=== PATIENT | male | born 1985 | race Caucasian/White ===

== ENCOUNTER → 2017-03-12 | Outpatient (CLI) | payer BC ==
[~2017-03-12] MED LIST: BACL1TAB PO; CLB100 PO; CLON0.5T3 PO; DICL1GEL28; DIPH25TA24 PO; DUTA0.5C PO; ESCI10TA17 PO; FLAX100024 PO; GADAVIST IV PRN; GLUCTAB7 PO; MELA1CAP PO; META1TAB22 PO; MULTTAB58 PO; PROB1TAB16 PO; TRAM-10 PO
--- NOTE | 2017-03-12 11:41 | DIAGNOSTIC IMAGING REPORT ---
MRI CERVICAL SPINE COMBO CLINICAL HISTORY: Herniated disc, cervical radiculopathy. TECHNIQUE: Sagittal and axial T1, T2 and STIR images were obtained. Imaging was performed before and after the administration of 6.5 cc of intravenous Gadavist. COMPARISON STUDY: No previous studies for comparison. There are no suspicious areas of marrow replacement. No intrinsic cervical cord lesions are visualized. C2-3: There is no evidence of disc bulge or focal herniation. There is no spinal or foraminal stenosis. C3-4: There is no evidence of disc bulge or focal herniation. There is no spinal or foraminal stenosis. C4-5: There are no disc bulges or focal herniations. There is no spinal or foraminal stenosis. C5-6 :There are no disc bulges or focal herniations. There is no spinal or foraminal stenosis. C6-7: There is a mild circumferential disc bulge. There is no significant spinal stenosis. There is minimal bilateral foraminal narrowing.. C7-T1: There is no evidence of disc bulge or focal herniation. There is no evidence of spinal or foraminal stenosis. Postcontrast images reveal no pathologically enhancing lesions IMPRESSION: 1. No intrinsic cord lesions identified 2. Mild C6-7 disc bulge. 3. No evidence of significant spinal stenosis. Minimal bilateral C6-7 foraminal narrowing Electronically signed by: West Youssef M.D. 03/12/2017 11:38 AM Dictated Date/Time: 03/12/2017 11:32 AM
== END | disposition home or self-care (01) ==
LOC: C.MRI 10:06
PROVIDERS: ATTEND Nurse Practitioner Family
DX: M50.10 Cervical disc disorder with radiculopathy, unspecified cervical region (principal); M54.2 Cervicalgia

== ENCOUNTER → 2018-01-07 | Outpatient (CLI) | payer OTHER ==
[~2018-01-07] MED LIST changes: -GADAVIST IV PRN
[2018-01-07 12:17] LABS: HEMATOCRIT 45.1 % (42-52); HEMOGLOBIN 15.9 g/dL (14.0-18.0); MEAN CELL VOLUME 87.2 fL (80-100); MEAN CORPUSCULAR HEMOGLOBIN 30.8 pg (25-34); MEAN CORPUSCULAR HGB CONC 35.3 g/dl (32-36); MEAN PLATELET VOLUME 10.3 fL (7.4-10.4); PLATELET COUNT 237 K/uL (130-400); RED CELL DISTRIBUTION WIDTH CV 12.9 % (11.5-14.5); RED CELL DISTRIBUTION WIDTH SD 41.3 fL (36.4-46.3); WHITE BLOOD COUNT 3.23 K/uL (4.8-10.8)
[2018-01-07 12:35] LABS: BLOOD UREA NITROGEN 24 mg/dl (7-18); CALCIUM 9.5 mg/dl (8.5-10.1); CARBON DIOXIDE 25 mmol/L (21-32); CREATININE 1.22 mg/dl (0.60-1.40); GLUCOSE 79 mg/dl (70-99); POTASSIUM 3.8 mmol/L (3.5-5.1); SODIUM 138 mmol/L (136-145)
[2018-01-07 12:46] LABS: ALKALINE PHOSPHATASE 62 U/L (45-117); ALT/SGPT 27 U/L (12-78); AST/SGOT 22 U/L (15-37); TOTAL PROTEIN 7.3 gm/dl (6.4-8.2)
[2018-01-10 14:15] LABS: ANA SCREEN TC 249X NEGATIVE (NEGATIVE)
== END | disposition home or self-care (01) ==
LOC: C.LAB 10:15
PROVIDERS: ATTEND Chiropractor
DX: R53.83 Other fatigue (principal)

== ENCOUNTER 2025-01-22 15:08 | Inpatient (IN) ==
--- NOTE | 2025-01-22 15:26 | Emergency Department Note ---
Impression & Plan Chest pain, Abnormal EKG ED Provider Note NAME: CLAU SWEENEY AGE: 39 SEX: M : 1985 ARRIVES VIA: Ambulance INFORMANT: Patient, ED PROVIDER(S): Reg Baca DO CHIEF COMPLAINT: Chest pain HPI: The patient is a 39-year-old male who presented to the emergency department for an evaluation of chest pain. The patient started having chest pain last evening. It occurred after sexual intercourse. He notices when he lays down and relaxes the pain goes away but when he stands up he does note pain returning. He denies having any shortness of breath or leg swelling. The patient does not have a history of coronary artery disease. He denies having any fever or cough. The patient went to see his family doctor today and was sent to the emergency department because of an abnormal EKG. The patient states at this time he has no discomfort. ROS: See above HPI for pertinent positives & negatives. A total of 10 systems reviewed and were otherwise negative. PAST MEDICAL HISTORY: See Below PAST SURGICAL HISTORY: See Below FAMILY HISTORY: See Below SOCIAL HISTORY: See Below HOME MEDICATIONS: See Below ALLERGIES: See Below VITALS: See Below PHYSICAL EXAMINATION: GENERAL: Patient is awake alert in no acute distress patient is resting comfortably and showing no signs of anxiety EYES: The conjunctivae are clear. The pupils are round and reactive. EARS, NOSE, MOUTH AND THROAT: The nose is without any evidence of any deformity. NECK: The neck is nontender and supple. RESPIRATORY: Normal respiratory effort is noted there is no evidence of wheezing rhonchi or rales CARDIOVASCULAR: Regular rate and rhythm noted there no murmurs rubs or gallops normal S1 normal S2. GASTROINTESTINAL: The abdomen is soft. Abdomen is nontender. MUSCULOSKELETAL/EXTREMITIES: There is no evidence of gross deformity full range of motion is noted in the hips and shoulders. SKIN: There is no obvious evidence of any rash. There are no petechiae, pallor or cyanosis noted. NEUROLOGIC: Patient is awake alert and oriented x3 MEDICAL DECISION MAKING: The patient is a 39-year-old male who presented to the emergency department for an evaluation of chest pain. The patient describes anterior chest pain which began the night before. The patient was initially seen at his family doctor's office. He was found to have an EKG that was very abnormal and he was sent to the emergency department by ambulance for further evaluation. The patient's pain did not seem to be very extensive. His initial EKG by prehospital as well as his initial EKG in the emergency department did not show the same ST segment elevations. Initial troponin was normal. I discussed the patient's condition with the [facility] citrix architect. He does recommend an echocardiogram in the emergency department. This did not show any obvious wall motion abnormalities. I discussed the patient's condition with the on-call [facility] hospitalist. They have agreed to evaluate the patient in the emergency department for further management and disposition. Triage Nursing notes reviewed. Prior medical records reviewed Vital Signs: reviewed and remarkable for no significant abnormalities Differential diagnosis: Cardiac ischemia, aortic dissection, pulmonary embolism, pneumothorax, pneumonia, pericarditis, myocarditis, esophageal rupture, GERD, cholecystitis, pancreatitis, musculoskeletal, as well as other pathologies. ER treatment provided: See below Diagnostics interpreted by me: ECG: EKG was obtained in the emergency department. My interpretation is normal sinus rhythm at 71 bpm. Nonspecific T wave abnormalities were noted in the inferior leads. There is no acute ST segment elevations noted. This was carried to a tracing from September 29, 2023. No changes were noted. A prehospital EKG was reviewed. My interpretation is normal sinus rhythm at 75 bpm. There is no ectopy. There was no acute ST segment elevations noted. This compares similar to the initial EKG obtained in the emergency department. An EKG that was done in the clinic was reviewed. My interpretation is sinus bradycardia at [address] segment elevations were noted in the apical and lower lateral leads. There is also ST depression noted inferiorly. These ST segment abnormalities have since resolved comparing to the EKG obtained in the emergency department. Cardiac Monitoring: An order was placed for continuous cardiac monitoring. The monitor shows a rate of 72 bpm with sinus rhythm. Laboratory studies: As stated above and show below. Imaging studies: See below. Radiographic imaging was reviewed by myself Consultation(s): I discussed this case with Claudia who is covering for the [facility] hospitalist group. I discussed this case with Dr. Medeiros who is on-call for the [facility] cardiology group. Past Med/Surg History Problem List (Updated 01/22/25 @ 21:08 by Reg Baca DO) Abnormal EKG (Acute) Chest pain (Acute) CKD (chronic kidney disease) stage 3, GFR 30-59 ml/min Nonspecific ST-T wave electrocardiographic changes Chest pain Benign hypertension BHASKAR positive 1: 40. 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 Sleep walking disorder (Chronic) Underwent sleep study 05/19/12 - No significant slep apnea/hypooponea, nocturnal hypoxemia or abdnomal limb movements during sleep to explain symptoms. Only slept 2.1 hours. Recommended continued sleep aids/sleep hygeine optimization. Multiple food allergies (Acute) Allergy Testing 03/2018 - +1 pea, crab mix, servin's yeast, soybean whole grain. Trace for peanut mix, black walnut, lobster, salmon, cow's milk, rice whole grain. Allergic rhinitis Chronic fatigue Mast cell disorder Depression (Chronic) Vitamin D deficiency (Chronic) Medical History Constipation History of COVID-19 10/2020- flu like symptoms and loss of taste and smell; resolved MVP (mitral valve prolapse) slight, does not follow w/ cardio Environmental and seasonal allergies Hydronephrosis hx Surgical History Hx of ureter repair x 2- 3 mos and 12 yrs old Hx of cervical discectomy S/P vasectomy S/P wisdom tooth extraction S/P knee surgery X 2 S/P tonsillectomy S/P bladder repair Family History Grandmother (Maternal) Myocardial infarction Father Prostate cancer Hypertension Mother Lupus Other No family history of adverse response to anesthesia No family history of bleeding disorder Denies family history of Ovarian cancer Breast cancer Colorectal cancer Social History Smoking Status: Never smoker Second Hand Exposure: No; Do You Dip or Chew Tobacco: No; Hx Alcohol Use: Yes Alcohol Intake Frequency: 2-4 x/Month Hx Substance Use: No Preferred Language: Austrian Communication Ability: Effective Visual Impairment: No Limitations Hearing Ability: Normal Payroll Coordinator Required: No Beliefs That Will Affect Care: None marital status: Current Living Situation: Family current occupational status: 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 caffeine: Yes Dental Care, Regularly: Yes Physical Activity Frequency: 3-4 Times per Week Seatbelt Use: always Sunscreen Use: Yes Assistive Devices: Glasses Allergies Allergies Allergy/AdvReac Type Severity Reaction Status Date / Time lactose Allergy Intermediate GI Verified 01/22/25 12:55 UPSET/FLU-LIKE SYMPTOMS Sulfa (Sulfonamide Allergy Intermediate Rash Verified 01/22/25 12:55 Antibiotics) latex Allergy Mild Redness of Verified 01/22/25 12:55 Skin sertraline AdvReac Verified 01/22/25 12:55 Home Meds Home Medications Medication Instructions Recorded Confirmed fexofenadine 180 mg tablet 180 mg PO BID 03/28/21 01/22/25 (Rema Allergy) turmeric root extract 500 mg 500 mg PO BID 03/28/21 01/22/25 capsule ketotifen capsule 0.5 mg PO HS 02/24/23 01/22/25 lithium carbonate 300 mg tablet 300 mg PO QAM 05/18/23 01/22/25 lithium carbonate 450 mg 450 mg PO 05/18/23 01/22/25 tablet,extended release magnesium oxide 400 mg PO DAILY 09/29/23 01/22/25 zinc acetate 50 mg (zinc) capsule 50 mg PO DAILY 09/29/23 01/22/25 riboflavin (vitamin B2) 400 mg 400 mg PO DAILY 08/02/24 01/22/25 tablet budesonide-formoterol HFA 160 1 puff inhalation BID 01/22/25 01/22/25 mcg-4.5 mcg/actuation aerosol inhaler clonazepam 0.5 mg tablet 0.25 mg PO TID PRN Anxiety 01/22/25 01/22/25 famotidine 40 mg tablet 40 mg PO BID 01/22/25 01/22/25 galcanezumab-gnlm 120 mg/mL 120 mg subcut .EVERY 30 DAYS 01/22/25 01/22/25 subcutaneous pen injector (Emgality Pen) montelukast 10 mg tablet 10 mg PO HS 01/22/25 01/22/25 prednisone 10 mg tablet 10 mg PO DIRECTED 01/22/25 01/22/25 Previous Rx's Medication Instructions Recorded albuterol sulfate 90 mcg/actuation 2 puffs inhalation Q6H PRN 01/04/20 aerosol inhaler shortness of breath or wheezing #8.5 grams epinephrine 0.3 mg/0.3 mL 0.3 mg (0.3 mL) IM ONCE PRN 09/16/20 injection, auto-injector anaphylaxis #1 dose pk ondansetron 4 mg disintegrating 4 mg PO Q6H PRN nausea and 11/26/23 tablet vomiting #20 tabs metoprolol succinate 50 mg 50 mg PO DAILY #90 tabs 02/29/24 tablet,extended release 24 hr omalizumab 150 mg/mL subcutaneous 300 mg (2 mL) subcut .COMPLEX #4 mL 03/06/24 syringe (Xolair) miscellaneous medical supply #60 caps 03/23/24 prednisone 10 mg tablet 10 mg PO DAILY PRN migraine #30 04/11/24 tabs digital therapeutic,HILLARY device #1 ea 05/31/24 rizatriptan 10 mg tablet See Rx Instructions PO .COMPLEX 30 10/12/24 days #9 tabs Results & Data (ED) Vital Signs Vital Signs - 24 hr 01/22/25 15:24 01/22/25 15:33 01/22/25 15:33 Temperature 36.7 C Temperature Source Oral Pulse Rate 76 64 Pulse Rate [Apical] 76 Pulse Rate from SpO2 Sensor Pulse Rhythm Regular Pulse Strength Normal Respiratory Rate 20 21 21 Respiratory Effort / Characteristics Non-Labored Spontaneous Non-Labored Respiratory Depth Normal Normal Respiratory Pattern Blood Pressure 157/95 H Blood Pressure [Left Arm] 151/100 H Blood Pressure Mean 115 Blood Pressure Mean [Left Arm] 117 Pulse Oximetry 100 100 100 Oxygen Delivery Method Nasal Cannula Room Air Room Air Oxygen Flow Rate 2 Sepsis Recent Fever Within 48 Hours No Sepsis New/Unexplained Change in Mental Status N/A Sepsis Action Taken by Nursing No Action Required 01/22/25 15:34 01/22/25 15:48 01/22/25 15:53 Temperature Temperature Source Pulse Rate 65 Pulse Rate [Apical] 70 Pulse Rate from SpO2 Sensor Pulse Rhythm Pulse Strength Respiratory Rate 19 Respiratory Effort / Characteristics Non-Labored Respiratory Depth Normal Respiratory Pattern Regular Blood Pressure Blood Pressure [Left Arm] 141/93 H Blood Pressure Mean Blood Pressure Mean [Left Arm] 109 Pulse Oximetry 100 100 Oxygen Delivery Method Room Air Room Air Oxygen Flow Rate Sepsis Recent Fever Within 48 Hours Sepsis New/Unexplained Change in Mental Status Sepsis Action Taken by Nursing 01/22/25 16:03 01/22/25 16:27 01/22/25 17:00 Temperature Temperature Source Pulse Rate 69 70 Pulse Rate [Apical] Pulse Rate from SpO2 Sensor 68 71 Pulse Rhythm Pulse Strength Respiratory Rate 24 21 Respiratory Effort / Characteristics Respiratory Depth Respiratory Pattern Blood Pressure 137/99 144/97 H 138/84 Blood Pressure [Left Arm] Blood Pressure Mean 111 112 103 Blood Pressure Mean [Left Arm] Pulse Oximetry 100 100 Oxygen Delivery Method Oxygen Flow Rate Sepsis Recent Fever Within 48 Hours Sepsis New/Unexplained Change in Mental Status Sepsis Action Taken by Nursing 01/22/25 17:00 01/22/25 17:30 01/22/25 17:30 Temperature Temperature Source Pulse Rate 71 Pulse Rate [Apical] Pulse Rate from SpO2 Sensor 71 Pulse Rhythm Pulse Strength Respiratory Rate 18 Respiratory Effort / Characteristics Respiratory Depth Respiratory Pattern Blood Pressure 138/84 123/83 123/83 Blood Pressure [Left Arm] Blood Pressure Mean 102 100 100 Blood Pressure Mean [Left Arm] Pulse Oximetry 100 Oxygen Delivery Method Oxygen Flow Rate Sepsis Recent Fever Within 48 Hours Sepsis New/Unexplained Change in Mental Status Sepsis Action Taken by Nursing 01/22/25 17:30 01/22/25 17:30 01/22/25 17:30 Temperature Temperature Source Pulse Rate 73 Pulse Rate [Apical] Pulse Rate from SpO2 Sensor 66 Pulse Rhythm Pulse Strength Respiratory Rate 14 Respiratory Effort / Characteristics Respiratory Depth Respiratory Pattern Blood Pressure 123/83 123/83 Blood Pressure [Left Arm] Blood Pressure Mean 100 100 Blood Pressure Mean [Left Arm] Pulse Oximetry 100 Oxygen Delivery Method Oxygen Flow Rate Sepsis Recent Fever Within 48 Hours Sepsis New/Unexplained Change in Mental Status Sepsis Action Taken by Nursing 01/22/25 18:30 01/22/25 19:32 Temperature Temperature Source Pulse Rate 77 72 Pulse Rate [Apical] Pulse Rate from SpO2 Sensor 77 Pulse Rhythm Pulse Strength Respiratory Rate 21 Respiratory Effort / Characteristics Respiratory Depth Respiratory Pattern Blood Pressure 129/85 Blood Pressure [Left Arm] Blood Pressure Mean 103 Blood Pressure Mean [Left Arm] Pulse Oximetry 100 Oxygen Delivery Method Oxygen Flow Rate Sepsis Recent Fever Within 48 Hours Sepsis New/Unexplained Change in Mental Status Sepsis Action Taken by [facility] Medications Current Medication List: was personally reviewed by me Laboratory Data Attestation: I reviewed the patient's lab results. 01/22/25 15:30 01/22/25 15:30 Lab Results 01/22/25 01/22/25 Range/Units 15:30 19:39 WBC 9.65 (4.8-10.8) K/ul RBC 5.39 (4.70-6.10) M/uL Hgb 15.9 (14.0-18.0) g/dl Hct 46.1 (42.0-52.0) % MCV 85.5 (80.0-100.0) fL MCH 29.5 (25.0-34.0) pg MCHC 34.5 (32.0-36.0) g/dL RDW Std Deviation 42.4 (36.4-46.3) fL RDW Coeff of Nathalia 13.6 (11.5-14.5) % Plt Count 250 (130-400) K/uL MPV 10.2 (9.4-12.4) fL Immature Gran % (Auto) 0.5 % Neut % (Auto) 70.4 % Lymph % (Auto) 16.9 % [place] % (Auto) 8.4 % Eos % (Auto) 3.3 % Baso % (Auto) 0.5 % Neut # (Auto) 6.79 H (1.40-6.50) K/uL Lymph # (Auto) 1.63 (1.20-3.40) K/uL [place] # (Auto) 0.81 H (0.11-0.59) K/uL Eos # (Auto) 0.32 (0.00-0.50) K/uL Baso # (Auto) 0.05 (0.00-0.20) K/uL Immature Gran # (Auto) 0.05 (0.01-0.20) K/uL Sodium 138 (136-145) mmol/L Potassium 3.6 (3.5-5.1) mmol/L Chloride 109 H (98-107) mmol/L Carbon Dioxide 24 (21-32) mmol/L Anion Gap 5 (3-11) BUN 12 (6-23) mg/dl Creatinine 1.55 H (0.6-1.4) mg/dl Est Cr Clr Drug Dosing 66.4 ml/min eGFR 57.31 BUN/Creatinine Ratio 7.7 L (10-20) Glucose 125 H (70-99(Fasting)) mg/dl Calcium 10.6 H (8.6-10.3) mg/dl Total Bilirubin 1.2 H (0.2-1.0) mg/dl AST 26 (13-39) U/L ALT 38 (7-52) U/L Alkaline Phosphatase 51 (34-104) U/L Troponin I High Sens 3.1 < 2.3 (0-20) pg/ml Total Protein 7.1 (6.0-8.3) gm/dl Albumin 4.5 (3.4-5.0) gm/dl Globulin 2.6 (2.5-4.0) gm/dl Albumin/Globulin Ratio 1.7 (0.9-2) Lipase 23 (11-82) U/L Administered Medications Lactated Ringer's (Lr) 1,000 mls @ 125 mls/hr IV .Q8H [facility] Stop: 01/23/25 01:44 Last Admin: 01/22/25 19:40 Dose: 125 mls/hr Documented By: JOSH Discontinued Medications Ioversol (Optiray 320 125ml) 119 ml IV ONCE ONE Stop: 01/22/25 18:07 Last Admin: 01/22/25 18:06 Dose: 119 ml Documented By: THEO Nitroglycerin (Nitroglycerin Sl 0.4 Mg/Tab Tab) 0.4 mg SL NOW STA Stop: 01/22/25 18:57 Last Admin: 01/22/25 19:20 Dose: 0.4 mg Documented By: JOSH Imaging Data Attestation: I personally reviewed and interpreted this imaging study as follows: My Impression: 1 view chest x-ray was obtained in the emergency department. My interpretation is no free air or definite infiltrate, final report below. Radiologist's Impression: Chest X-Ray 01/22/25 15:22 XR chest 1V portable CLINICAL HISTORY: Chest pain, nonspecific. COMPARISON STUDY: Chest radiograph December 02, 2024. FINDINGS: Lung volumes are normal. Lungs are clear. There is no pneumothorax or pleural effusion. Cardiac size is normal. Mediastinal contours are normal. There is no evidence for pulmonary edema. IMPRESSION: No acute cardiopulmonary findings. ACT 112: Negative or not required by law. Electronically signed by: Tan Joel M.D. 01/22/2025 3:48 PM Chest CTA 01/22/25 17:44 CT pulmonary angiogram with IV contrast History: Shortness of breath COMPARISON: None TECHNIQUE: CT angiography of the chest was performed without IV contrast followed by IV contrast, including 3D post processing CTA image reconstruction. Dose reduction techniques were achieved by using automatic exposure control and/or adjustment of mA and/or kV according to patient size and/or use of iterative reconstruction technique. FINDINGS: Diagnostic quality: Adequate There is no evidence for pulmonary embolism. The heart is not enlarged. There is no pericardial effusion. There are no abnormally enlarged hilar or mediastinal lymph nodes. The central tracheobronchial tree is clear. The lungs are clear. There is no pleural effusion. Limited visualized upper abdomen. No destructive osseous changes are seen. IMPRESSION: No evidence for pulmonary embolism. Electronically signed by Stu Berkowitz 01-22-2025 6:23 PM Discharge Plan Visit Data Chief Complaint: Chest Pain ED Provider: Reg Baca Discharge Problem: Chest pain, Abnormal EKG Patient Disposition: Being Evaluated by Hospitalist Forms Stand Alone Forms: [facility] Prescriptions Prescriptions: No Action epinephrine 0.3 mg/0.3 mL auto-injector 0.3 mg IM ONCE PRN (Reason: anaphylaxis) Qty: 1 3RF Rx Instructions: May repeat once in 10 minutes if symptoms have not improved with first dose ondansetron 4 mg tablet,disintegrating 4 mg PO Q6H PRN (Reason: nausea and vomiting) Qty: 20 0RF Xolair 150 mg/mL syringe 300 mg subcut .COMPLEX Qty: 4 11RF Rx Instructions: INJECT XOLAIR 300 mg subcutaneously every 2 weeks (DME) miscellaneous medical supply Liquid See Rx Instructions .MEDSUPPLY Qty: 60 6RF Rx Instructions: Ketotifen 0.5 mg BID, disp 30 days prednisone 10 mg tablet 10 mg PO DAILY PRN (Reason: migraine) Qty: 30 0RF rizatriptan 10 mg tablet See Rx Instructions PO .COMPLEX 30 Days Qty: 9 3RF Rx Instructions: take 1 tab at onset of headache; if no relief may repeat 1 tab after at least 2 hrs; max = 3 tabs/24 hr PO albuterol sulfate 90 mcg/actuation HFA aerosol inhaler 2 puffs INH Q6H PRN (Reason: shortness of breath or wheezing) Qty: 8.5 0RF fexofenadine [Rema Allergy] 180 mg tablet 180 mg PO BID turmeric root extract 500 mg capsule 500 mg PO BID ketotifen capsule 0.5 mg 0.5 mg PO HS metoprolol succinate 50 mg tablet extended release 24 hr 50 mg PO DAILY Qty: 90 3RF (DME) digital therapeutic,HILLAYR device Misc See Rx Instructions miscellaneous .MEDSUPPLY Qty: 1 0RF Rx Instructions: As directed riboflavin (vitamin B2) 400 mg tablet 400 mg PO DAILY lithium carbonate 300 mg Tablet 300 mg PO QAM lithium carbonate 450 mg Tablet Extended Release 450 mg PO HS zinc acetate 50 mg (zinc) Capsule 50 mg PO DAILY magnesium oxide 400 mg magnesium Tablet 400 mg PO DAILY famotidine 40 mg tablet 40 mg PO BID Rx Instructions: TAKE 1 TABLET BY MOUTH TWICE A DAY montelukast 10 mg tablet 10 mg PO HS budesonide-formoterol 160-4.5 mcg/actuation HFA aerosol inhaler 1 puff INHALATION BID clonazepam 0.5 mg tablet 0.25 mg PO TID PRN (Reason: Anxiety) Emgality Pen 120 mg/mL pen injector 120 mg subcut .EVERY 30 DAYS prednisone 10 mg Tablet 10 mg PO DIRECTED Rx Instructions: see taper instructions take 4 tabs po x 2 days,then 3 tabs for 2 days,2 tabs for 3 days,1 tab for 3 dasys...ordered 01/22/25 Referrals Referrals: Belkys Joel MD [Primary Care Provider] -
[2025-01-22 15:31] VITALS: TEMP 98.1
[2025-01-22 15:42] LABS: Basophils # (auto) 0.05 K/uL (0.00-0.20); Basophils % (auto) 0.5 %; Eosinophils # (auto) 0.32 K/uL (0.00-0.50); Eosinophils % (auto) 3.3 %; Hematocrit (blood only) 46.1 % (42.0-52.0); Hemoglobin 15.9 g/dl (14.0-18.0); Immature Granulocytes # (auto) 0.05 K/uL (0.01-0.20); Immature Granulocytes % (auto) 0.5 %; Lymphocytes # (auto) 1.63 K/uL (1.20-3.40); Lymphocytes % (auto) 16.9 %; Mean Corpuscular Hemoglobin 29.5 pg (25.0-34.0); Mean Corpuscular Hgb Conc 34.5 g/dL (32.0-36.0); Mean Corpuscular Volume 85.5 fL (80.0-100.0); Mean Platelet Volume 10.2 fL (9.4-12.4); Monocytes # (auto) 0.81 K/uL (0.11-0.59); Monocytes % (auto) 8.4 %; Neutrophils # (auto) 6.79 K/uL (1.40-6.50); Neutrophils % (auto) 70.4 %; Platelet Count 250 K/uL (130-400); RDW Coefficient of Variation 13.6 % (11.5-14.5); RDW Standard Deviation 42.4 fL (36.4-46.3); Red Blood Count 5.39 M/uL (4.70-6.10); White Blood Count 9.65 K/ul (4.8-10.8)
--- NOTE | 2025-01-22 15:50 | XRay Report ---
XR chest 1V portable CLINICAL HISTORY: Chest pain, nonspecific. COMPARISON STUDY: Chest radiograph December 02, 2024. FINDINGS: Lung volumes are normal. Lungs are clear. There is no pneumothorax or pleural effusion. Car diac size is normal. Mediastinal contours are normal. There is no evidence for pulmonary edema. IMPRESSION: No acute cardiopulmonary findings. ACT 112: Negative or not required by law. Electronically signed by: Tan Joel M.D. 01/22/2025 3:48 PM
[2025-01-22 16:07] LABS: Albumin Globulin Ratio 1.7 (0.9-2); Albumin Level 4.5 gm/dl (3.4-5.0); BUN Creatinine Ratio 7.7 (10-20); Bilirubin,Total 1.2 mg/dl (0.2-1.0); Calcium 10.6 mg/dl (8.6-10.3); Creatinine Clr Calc Pharmacy 66.4 ml/min; Globulin 2.6 gm/dl (2.5-4.0); Potassium 3.6 mmol/L (3.5-5.1); Total Protein 7.1 gm/dl (6.0-8.3)
[2025-01-22 16:13] LABS: Troponin I High Sensitivity 3.1 pg/ml (0-20)
--- NOTE | 2025-01-22 16:38 | History & Physical Report ---
Date of Service January 22, 2025 Assessment & Plan (1) Chest pain: (2) Nonspecific ST-T wave electrocardiographic changes: (3) Mast cell disorder: (4) CKD (chronic kidney disease) stage 3, GFR 30-59 ml/min: Plan 39 year old male with a past medical history of mast cell disorder presenting with chest pain and EKG changes. #Chest Pain/Abnormal EKG - Differential-> ACS vs PE vs Myocarditis/Pericarditis vs MSK - Chest pain is now resolved - EKG from outpatient office this afternoon with Sinus bradycardia with a rate= 59 ST evaluations in anterior leads, EKG obtained en route to hospital with NSR HR= 75, no acute ST elevations-> EKG in ED with NSR, nonspecific ST changes in inferior leads, no acute ST elevations - TTE with EF= 60-65%, no regional wall motion abnormalities - CTA PE protocol pending-> r/u PE - Troponin = 3.1 -> repeat pending, will plan to trend overnight q6H - s/p 324 ASP en route to ED; continue 81mg daily - continue metoprolol - monitor on telemetry - repeat EKG qAM - uric acid qAM-> ? atypical #CKD Stage 3a - Creatine 1.55 from baseline of 1.3; doesn't meet criteria for ATURUS, but elevated - will give 1L LR @125ml/hr - repeat BMP qAM #Mast Cell Disorder - follows with allergy - questions if current presentation could have any relation to this as he has had atypical presentations in the past-> r/u cardiac cause as per above - Pt states that he takes Benadryl prn qHS for symptoms-> ordered Chronic/Stable: #Asthma: Symbicort/Albuterol prn #Anxiety/Depression: continue clonazepam prn, lithium History of Present Illness Primary Care Provider: Belkys Joel MD 39 year old with a past medical history of HTN, mast cell disorder, depression presenting with concern for chest pain and abnormal EKG. States that chest pain began last night after intercourse. Mid sternal radiating to left arm with some dyspnea. Worse with exertion. Denies prior cardiac history, denies similar episodes of pain in the past. States that he had intermittent pain which resolved this afternoon at 1300.Currently without chest pain/dyspnea. Was sent to ED after abnormal EKG in outpatient office with concern for ST elevations in V2-V5. ED Course Significant for: CBC wnl. Creatinine= 1.55. CXR without acute pathology. EKG en route to hospital with NSR HR= 75, no acute ST elevations-> EKG in ED with NSR, nonspecific ST changes in inferior leads, no acute ST elevations. TTE with EF= 60-65%, no regional wall motion abnormalities. Allergies Allergy/AdvReac Type Severity Reaction Status Date / Time lactose Allergy Intermediate GI Verified 01/22/25 12:55 UPSET/FLU-LIKE SYMPTOMS Sulfa (Sulfonamide Allergy Intermediate Rash Verified 01/22/25 12:55 Antibiotics) latex Allergy Mild Redness of Verified 01/22/25 12:55 Skin sertraline AdvReac Verified 01/22/25 12:55 Home Medications Medication Instructions Recorded Confirmed Type albuterol sulfate 90 mcg/actuation 2 puffs inhalation Q6H PRN 01/04/20 01/22/25 Rx aerosol inhaler shortness of breath or wheezing #8.5 grams epinephrine 0.3 mg/0.3 mL 0.3 mg (0.3 mL) IM ONCE PRN 09/16/20 01/22/25 Rx injection, auto-injector anaphylaxis #1 dose pk fexofenadine 180 mg tablet 180 mg PO BID 03/28/21 01/22/25 History (Rema Allergy) turmeric root extract 500 mg 500 mg PO BID 03/28/21 01/22/25 History capsule ketotifen capsule 0.5 mg PO HS 02/24/23 01/22/25 History lithium carbonate 300 mg tablet 300 mg PO QAM 05/18/23 01/22/25 History lithium carbonate 450 mg 450 mg PO HS 05/18/23 01/22/25 History tablet,extended release magnesium oxide 400 mg PO DAILY 09/29/23 01/22/25 History zinc acetate 50 mg (zinc) capsule 50 mg PO DAILY 09/29/23 01/22/25 History ondansetron 4 mg disintegrating 4 mg PO Q6H PRN nausea and 11/26/23 01/22/25 Rx tablet vomiting #20 tabs metoprolol succinate 50 mg 50 mg PO DAILY #90 tabs 02/29/24 01/22/25 Rx tablet,extended release 24 hr omalizumab 150 mg/mL subcutaneous 300 mg (2 mL) subcut .COMPLEX #4 mL 04/15/24 0 01/22/25 Rx syringe (Xolair) miscellaneous medical supply #60 caps 03/23/24 01/22/25 Rx prednisone 10 mg tablet 10 mg PO DAILY PRN migraine #30 04/11/24 01/22/25 Rx tabs digital therapeutic,HILLARY device #1 ea 05/31/24 01/22/25 Rx riboflavin (vitamin B2) 400 mg 400 mg PO DAILY 08/02/24 01/22/25 History tablet rizatriptan 10 mg tablet See Rx Instructions PO .COMPLEX 30 10/12/24 01/22/25 Rx days #9 tabs budesonide-formoterol HFA 160 1 puff inhalation BID 01/22/25 01/22/25 History mcg-4.5 mcg/actuation aerosol inhaler clonazepam 0.5 mg tablet 0.25 mg PO TID PRN Anxiety 01/22/25 01/22/25 History famotidine 40 mg tablet 40 mg PO BID 01/22/25 01/22/25 History galcanezumab-gnlm 120 mg/mL 120 mg subcut .EVERY 30 DAYS 01/22/25 01/22/25 History subcutaneous pen injector (Emgality Pen) montelukast 10 mg tablet 10 mg PO HS 01/22/25 01/22/25 History prednisone 10 mg tablet 10 mg PO DIRECTED 01/22/25 01/22/25 History Past Med/Surg History Problem List (Updated 01/22/25 @ 18:00 by Claudia Pearson DO) CKD (chronic kidney disease) stage 3, GFR 30-59 ml/min Nonspecific ST-T wave electrocardiographic changes Chest pain Benign hypertension BHASKAR positive 1: 40. 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 Sleep walking disorder (Chronic) Underwent sleep study 05/19/12 - No significant slep apnea/hypooponea, nocturnal hypoxemia or abdnomal limb movements during sleep to explain symptoms. Only slept 2.1 hours. Recommended continued sleep aids/sleep hygeine optimization. Multiple food allergies (Acute) Allergy Testing 03/2018 - +1 pea, crab mix, servin's yeast, soybean whole grain. Trace for peanut mix, black walnut, lobster, salmon, cow's milk, rice whole grain. Allergic rhinitis Chronic fatigue Mast cell disorder Depression (Chronic) Vitamin D deficiency (Chronic) Medical History Constipation History of COVID-19 10/2020- flu like symptoms and loss of taste and smell; resolved MVP (mitral valve prolapse) slight, does not follow w/ cardio Environmental and seasonal allergies Hydronephrosis hx Surgical History Hx of ureter repair x 2- 3 mos and 12 yrs old Hx of cervical discectomy S/P vasectomy S/P wisdom tooth extraction S/P knee surgery X 2 S/P tonsillectomy S/P bladder repair Family History Grandmother (Maternal) Myocardial infarction Father Prostate cancer Hypertension Mother Lupus Other No family history of adverse response to anesthesia No family history of bleeding disorder Denies family history of Ovarian cancer Breast cancer Colorectal cancer Social History Smoking Status: Never smoker Second Hand Exposure: No; Do You Dip or Chew Tobacco: No; Hx Alcohol Use: Yes Alcohol Intake Frequency: 2-4 x/Month Hx Substance Use: No Preferred Language: [place] Communication Ability: Effective Visual Impairment: No Limitations Hearing Ability: Normal 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 caffeine: Yes Dental Care, Regularly: Yes Physical Activity Frequency: 3-4 Times per Week Seatbelt Use: always Sunscreen Use: Yes Assistive Devices: Glasses Review of Systems Review of Systems: As per above Physical Exam Physical Exam: Constitutional: well-appearing, no acute distress HEENT: NCAT, no conjunctival injection CV: regular rhythm, no murmur appreciated, extremities well-perfused, no LE edema Resp: CTABL, no wheezes/rales/rhonchi appreciated, no increased work of breathing MSK: no gross deformities appreciated Skin: warm, dry, no rash appreciated Neuro: alert, oriented, no focal neurologic deficit appreciated Results & Data Results & Data Vital Signs (Past 12 Hours) Vital Signs Temp Pulse Pulse Resp BP BP Pulse Ox 01/22/25 15:53 70 19 141/93 H 100 01/22/25 15:48 65 01/22/25 15:34 100 01/22/25 15:33 64 21 100 01/22/25 15:33 76 21 151/100 H 100 01/22/25 15:24 36.7 C 76 20 157/95 H 100 O2 Del Method O2 Flow Rate 01/22/25 15:53 Room Air 01/22/25 15:48 01/22/25 15:34 Room Air 01/22/25 15:33 Room Air 01/22/25 15:33 Room Air 01/22/25 15:24 Nasal Cannula 2 Supervising Physician Co-Signing Physician Notes Patient was seen and examined independently I discussed the case with Claudia Pearson, PGY 3 I reviewed pertinent past medical social family history and also the plan of care and agree with the plan of care. Patient developed chest pain and shortness of breath after intercourse. Patient's shortness of breath continued with some minor dizziness. In the emergency department there was some initial concerns as he was sent by ambulance from his primary care office for STEMI. EKG was not pathognomonic for STEMI. Patient was seen transiently by Dr. Trotter who feels this was not acute coronary syndrome and patient was not taken to [facility] [employer]. His initial troponin was in the normal range. Patient symptoms persisted with pleuritic chest pain and shortness of breath. A CT angiogram was undertaken which was unremarkable for pulmonary embolism or other pathology within the chest. Patient has multiple allergies and suffers from a "mast cell disorder" for which she sees Dr. Armendariz for which he is treated with Xolair famotidine [place] last Rema and Kitofen There is exam he seems to become tachypneic when he is aware of being tachypneic he has some reproducible upper pleuritic left anterior chest wall pain card exam is regular without murmurs or rubs his lungs are clear without wheeze or crackles and good excursion his abdomen is NABS soft and nontender Chest pain and shortness of breath of undetermined etiology as mentioned major pathologies been ruled out we will check a CRP uric acid will try a nitroglyceri n for coronary vasospasm. Trending troponin Any exceptions will be noted below Resident Activity Tracking Resident Involvement: Resident Care Provided Care Provided: Adult Hospital Medicine
--- NOTE | 2025-01-22 16:55 | XCELERA ---
[id number] \\[email or web address]\[id number]
[2025-01-22] MEDS: OPTIRAY 320 125ml IV ONE (18:06)
--- NOTE | 2025-01-22 18:23 | CT Scan Report ---
CT pulmonary angiogram with IV contrast History: Shortness of breath COMPARISON: None TECHNIQUE: CT angiography of the chest was performed without IV contrast followed by IV contrast, including 3D post processing CTA image reconstruction. Dose reduction techniques were achieved by using automatic exposure control and/or adjustment of mA and/or kV according to patient size and/or use of iterative reconstruction technique. FINDINGS: Diagnostic quality: Adequate There is no evidence for pulmonary embolism. The heart is not enlarged. There is no pericardial effusion. There are no abnormally enlarged hilar or mediastinal lymph nodes. The central tracheobronchial tree is clear. The lungs are clear. There is no pleural effusion. Limited visualized upper abdomen. No destructive osseous changes are seen. IMPRESSION: No evidence for pulmonary embolism. Electronically signed by Stu Berkowitz 01-22-2025 6:23 PM
[2025-01-22] MEDS: NITROGLYCERIN SL 0.4 MG/TAB TAB SL STA (19:20)
[2025-01-22] MEDS: LACTATED RINGER'S 1,000 ML IV SCH (19:40)
[2025-01-22 20:23] LABS: Troponin I High Sensitivity < 2.3 pg/ml (0-20)
[2025-01-22] MEDS ORDERED: ALBUTEROL HFA 8 GM INHALER INH PRN (22:33)
[2025-01-22 22:58] LABS: Uric Acid 8.5 mg/dl (2.6-7.2)
[2025-01-22] MEDS: FEXOFENADINE HCL 180 MG TAB PO SCH (23:04)
[2025-01-22] MEDS: FAMOTIDINE 40 MG TABLET PO SCH (23:05)
[2025-01-22] MEDS: MONTELUKAST SODIUM 10 MG TABLET PO SCH (23:06)
[2025-01-22] MEDS: LITHIUM CARBONATE 450 MG TABCR PO SCH (23:06)
[2025-01-22] MEDS: diphenhydrAMINE Capsule 25 MG CAP PO PRN (23:15)
[2025-01-22] MEDS: clonazePAM 0.5 MG TAB PO PRN (23:15)
[2025-01-22] MEDS: METOPROLOL SUCC 50MG EXT REL TAB PO STA (23:31)
[2025-01-22] MEDS: KETOTIFEN~ORDER AWAITING ACTION SCH (23:32)
[2025-01-22 23:35] LABS: C Reactive Protein < 0.50 mg/dl (0-0.5)
--- NOTE | 2025-01-23 07:00 | Hospitalist Progress Note ---
Date of Service January 23, 2025 Assessment & Plan (1) Chest pain: (2) Nonspecific ST-T wave electrocardiographic changes: (3) Mast cell disorder: (4) CKD (chronic kidney disease) stage 3, GFR 30-59 ml/min: Plan Pt is a 39 year old male with a past medical history of mast cell disorder presenting to the hospital on 01/22 with chest pain and EKG changes of anterior lead ST changes. #Chest Pain/Abnormal EKG - Differential-> ACS vs PE vs Myocarditis/Pericarditis vs MSK - EKG from outpatient office this afternoon with Sinus bradycardia with a rate= [address] evaluations in anterior leads, EKG obtained en route to hospital with NSR HR= 75, no acute ST elevations-> EKG in ED with NSR, nonspecific ST changes in inferior leads, no acute ST elevations - TTE with EF= 60-65%, no regional wall motion abnormalities - CTA PE protocol pending-> no PE - Troponin <2.3 x3 - am EKG unchanged - s/p 324 ASP en route to ED; continue 81mg daily - continue metoprolol - will do inpatient stress echo as while I suspect his pain is not due to ACS, pt has significant stress about future chest pain episodes and so we will rule out further; this is pending #Elevated uric acid - low suspicion for cardiac involvement with this at this time - elevated at 8.5 - should get repeat levels outpatient #CKD Stage 3a - Creatine 1.55 from baseline of 1.3; doesn't meet criteria for TAURUS, but elevated - Cr decreased back to baseline 1.36 after 1L IVF #Mast Cell Disorder - follows with allergy - questions if current presentation could have any relation to this as he has had atypical presentations in the past-> r/u cardiac cause as per above - Pt states that he takes Benadryl prn qHS for symptoms-> ordered Chronic/Stable: #Asthma: Symbicort/Albuterol prn #Anxiety/Depression: continue clonazepam prn, lithium VTE prophylaxis: low risk (Eliazar score 0-1) so defer chemical DVT prophylaxis at this time Admission and Anticipated Discharge Date Admission Date: January 22, 2025 Subjective Pt seen at bedside this morning. When I entered the room, pt was sitting on edge of bed and appeared quite anxious. He states he is feeling okay today, he states that after the nitro was given he felt his chest pain improved but now he has chest soreness. The soreness does not increase with walking to go to the bathroom. He denies nausea or vomiting or abdominal pain. He states when moving around he can sometimes feel a bit short of breath. No palpitations. No sensation as though he may pass out. Review of Systems Review of Systems: Per HPI. Physical Exam Physical Exam: General:Alert and oriented, no acute distress, HEENT: Normocephalic, moist oral mucosa, Cardio: Regular rate and rhythm, no murmur, Resp:Lungs clear to auscultation b/l, no wheezes or rhonchi, Skin: Warm, pink, dry, Results & Data Results & Data Vital Signs (Past 12 Hours) Vital Signs Pulse Resp BP Pulse Ox O2 Del Method 01/23/25 06:03 74 18 99 Room Air 01/23/25 05:00 76 16 96 Room Air 01/23/25 04:36 71 18 96 Room Air 01/23/25 04:32 107/71 01/23/25 04:27 80 16 99 Room Air 01/23/25 04:00 84 19 99 Room Air 01/23/25 03:06 71 96 01/22/25 23:30 78 01/22/25 23:03 79 22 129/90 99 Room Air 01/22/25 22:06 75 16 120/81 96 01/22/25 21:03 73 20 140/105 H 98 Room Air 01/22/25 20:33 72 22 133/102 H 98 Room Air 01/22/25 19:36 75 22 123/85 100 Room Air 01/22/25 19:32 72 Resident Activity Tracking Resident Involvement: Resident Care Provided Care Provided: Adult Hospital Medicine
[2025-01-23 07:24] LABS: Basophils # (auto) 0.05 K/uL (0.00-0.20); Basophils % (auto) 0.6 %; Eosinophils # (auto) 0.36 K/uL (0.00-0.50); Eosinophils % (auto) 4.1 %; Hemoglobin 14.4 g/dl (14.0-18.0); Immature Granulocytes # (auto) 0.04 K/uL (0.01-0.20); Immature Granulocytes % (auto) 0.5 %; Lymphocytes # (auto) 1.45 K/uL (1.20-3.40); Lymphocytes % (auto) 16.5 %; Mean Corpuscular Hemoglobin 29.2 pg (25.0-34.0); Mean Corpuscular Hgb Conc 33.5 g/dL (32.0-36.0); Mean Corpuscular Volume 87.2 fL (80.0-100.0); Mean Platelet Volume 10.6 fL (9.4-12.4); Monocytes % (auto) 9.1 %; Neutrophils # (auto) 6.09 K/uL (1.40-6.50); Neutrophils % (auto) 69.2 %; Platelet Count 211 K/uL (130-400); RDW Coefficient of Variation 13.8 % (11.5-14.5); RDW Standard Deviation 43.9 fL (36.4-46.3); Red Blood Count 4.93 M/uL (4.70-6.10); White Blood Count 8.79 K/ul (4.8-10.8)
[2025-01-23 07:27] LABS: Albumin Globulin Ratio 1.8 (0.9-2); Albumin Level 3.9 gm/dl (3.4-5.0); BUN Creatinine Ratio 6.6 (10-20); Bilirubin,Total 1.7 mg/dl (0.2-1.0); Calcium 9.7 mg/dl (8.6-10.3); Creatinine Clr Calc Pharmacy 75.5 ml/min; Globulin 2.2 gm/dl (2.5-4.0); Total Protein 6.1 gm/dl (6.0-8.3)
[2025-01-23] MEDS ORDERED: NON-FORMULARY MEDICATION (Riboflavin (Vitamin B2) 400 mg tablet) PO SCH (09:00)
[2025-01-23] MEDS ORDERED: METOPROLOL SUCC 50MG EXT REL TAB PO SCH ×2 (09:00→21:00)
[2025-01-23] MEDS: LITHIUM CARBONATE 300 MG TAB PO SCH (09:34)
[2025-01-23] MEDS: MAGNESIUM OXIDE 400 MG TAB PO SCH (09:34)
[2025-01-23] MEDS: ZINC SULFATE 220 MG CAPSULE PO SCH (09:35)
[2025-01-23] MEDS: FLUTICASONE/VILANTEROL 100/25MCG 14 PUFFS/INHALER INH SCH (09:35)
--- NOTE | 2025-01-23 16:15 | XCELERA ---
[id number] \\[email or web address]\[id number]
[2025-01-23 16:41] VITALS: PULSE 78; RESP 20; O2SAT 99
[2025-01-23 16:47] VITALS: BP 132/89
--- NOTE | 2025-01-23 16:52 | Discharge Summary ---
Date of Service January 23, 2025 Admission HPI Per Admitting Provider 39 year old with a past medical history of HTN, mast cell disorder, depression presenting with concern for chest pain and abnormal EKG. States that chest pain began last night after intercourse. Mid sternal radiating to left arm with some dyspnea. Worse with exertion. Denies prior cardiac history, denies similar episodes of pain in the past. States that he had intermittent pain which resolved this afternoon at 1300.Currently without chest pain/dyspnea. Was sent to ED after abnormal EKG in outpatient office with concern for ST elevations in V2-V5. ED Course Significant for: CBC wnl. Creatinine= 1.55. CXR without acute pathology. EKG en route to hospital with NSR HR= 75, no acute ST elevations-> EKG in ED with NSR, nonspecific ST changes in inferior leads, no acute ST elevations. TTE with EF= 60-65%, no regional wall motion abnormalities. Admission Exam Per Admitting Provider Constitutional: well-appearing, no acute distress HEENT: NCAT, no conjunctival injection CV: regular rhythm, no murmur appreciated, extremities well-perfused, no LE edema Resp: CTABL, no wheezes/rales/rhonchi appreciated, no increased work of breathing MSK: no gross deformities appreciated Skin: warm, dry, no rash appreciated Neuro: alert, oriented, no focal neurologic deficit appreciated Principal Diagnosis Chest pain Discharge Exam General:Alert and oriented, no acute distress, HEENT: Normocephalic, moist oral mucosa, Cardio: Regular rate and rhythm, no murmur, Resp:Lungs clear to auscultation b/l, no wheezes or rhonchi, Skin: Warm, pink, dry, Discharge Data Allergies Allergy/AdvReac Type Severity Reaction Status Date / Time Sulfa (Sulfonamide Allergy Intermediate Rash Verified 01/22/25 12:55 Antibiotics) latex Allergy Mild Redness of Verified 01/22/25 12:55 Skin milk Allergy Verified 01/23/25 12:35 sertraline AdvReac Verified 01/22/25 12:55 Consultations 01/22/25 16:38 ED Decision to Admit Stat Ordered Studies 01/22/25 17:44 CT for pulmonary embolism PE [CT angio chest PE protocol] Stat Hospital Course (1) Chest pain: (2) Nonspecific ST-T wave electrocardiographic changes: (3) Mast cell disorder: (4) CKD (chronic kidney disease) stage 3, GFR 30-59 ml/min: Plan Pt is a 39 year old male with a past medical history of mast cell disorder presenting to the hospital on 01/22 with chest pain and EKG changes of anterior lead ST changes. #Chest Pain/Abnormal EKG - EKG from outpatient prior to arrival rate [address] elevations in anterior leads, EKG obtained en route to hospital with NSR HR= 75, no acute ST elevations-> EKG in ED with NSR, nonspecific ST changes in inferior leads, no acute ST elevations - TTE with EF= 60-65%, no regional wall motion abnormalities - CTA PE protocol pending-> no PE - Troponin <2.3 x3 - am EKG unchanged - inpatient stress echo done which was normal, effectively ruling out ACS - discharged with nitroglycerine, to f/u with PCP in a few days #Elevated uric acid - low suspicion for cardiac involvement with this at this time - elevated at 8.5 - should get repeat levels outpatient All other chronic conditions managed with same medications that pt is on at home. Total Time Total Time Spent Total Time Spent (In Minutes): As per attending attestation. Discharge Plan Discharge Items Patient Disposition: Home - Self-Care Reason For Visit: CHEST PAIN Discharge Diagnosis: Chest pain Activity: Per Instructions section Non-emergency contact: Primary Care Provider Call non-emergency contact if: you have any medication questions and your symptoms worsen Follow-up/Referrals: Belkys Joel MD [Primary Care Provider] - Diet: Regular Addtl Attending Provider Instructions: You were admitted for chest pain and EKG changes. The work-up we have done so far has not shown any signs of underlying heart disease. We are still waiting for the final results from your stress test and will give you a call tomorrow once we get these back. We are going to send a prescription for nitroglycerin, you can take this if you have chest pain, if you do take one of these and your pain resolves you should call you doctor. If you take once and your pain does not resolve you should come back to the ED. Otherwise we did not make any changes to your medications, you have been taking 81mg of aspirin daily at home and it is reasonable to continue that. You should make an appointment to follow up with your primary care doctor in the next week. Pending Studies at Discharge: No Stand-Alone Forms: My [facility], Smoking Cessation Medications and DC Order Prescriptions: New nitroglycerin 0.4 mg tablet, sublingual 0.4 mg sublingual DAILY PRN (Reason: chest pain) Qty: 30 0RF Continued epinephrine 0.3 mg/0.3 mL auto-injector 0.3 mg IM ONCE PRN (Reason: anaphylaxis) Qty: 1 3RF Rx Instructions: May repeat once in 10 minutes if symptoms have not improved with first dose ondansetron 4 mg tablet,disintegrating 4 mg PO Q6H PRN (Reason: nausea and vomiting) Qty: 20 0RF Xolair 150 mg/mL syringe 300 mg subcut .COMPLEX Qty: 4 11RF Rx Instructions: INJECT XOLAIR 300 mg subcutaneously every 2 weeks (DME) miscellaneous medical supply Liquid See Rx Instructions .MEDSUPPLY Qty: 60 6RF Rx Instructions: Ketotifen 0.5 mg BID, disp 30 days prednisone 10 mg tablet 10 mg PO DAILY PRN (Reason: migraine) Qty: 30 0RF rizatriptan 10 mg tablet See Rx Instructions PO .COMPLEX 30 Days Qty: 9 3RF Rx Instructions: take 1 tab at onset of headache; if no relief may repeat 1 tab after at least 2 hrs; max = 3 tabs/24 hr PO albuterol sulfate 90 mcg/actuation HFA aerosol inhaler 2 puffs INH Q6H PRN (Reason: shortness of breath or wheezing) Qty: 8.5 0RF fexofenadine [Rema Allergy] 180 mg tablet 180 mg PO BID turmeric root extract 500 mg capsule 500 mg PO BID ketotifen capsule 0.5 mg 0.5 mg PO HS metoprolol succinate 50 mg tablet extended release 24 hr 50 mg PO DAILY Qty: 90 3RF (DME) digital therapeutic,HILLARY device Misc See Rx Instructions miscellaneous .MEDSUPPLY Qty: 1 0RF Rx Instructions: As directed riboflavin (vitamin B2) 400 mg tablet 400 mg PO DAILY lithium carbonate 300 mg Tablet 300 mg PO QAM lithium carbonate 450 mg Tablet Extended Release 450 mg PO HS zinc acetate 50 mg (zinc) Capsule 50 mg PO DAILY magnesium oxide 400 mg magnesium Tablet 400 mg PO DAILY famotidine 40 mg tablet 40 mg PO BID Rx Instructions: TAKE 1 TABLET BY MOUTH TWICE A DAY montelukast 10 mg tablet 10 mg PO HS budesonide-formoterol 160-4.5 mcg/actuation HFA aerosol inhaler 1 puff INHALATION BID clonazepam 0.5 mg tablet 0.25 mg PO TID PRN (Reason: Anxiety) Emgality Pen 120 mg/mL pen injector 120 mg subcut .EVERY 30 DAYS prednisone 10 mg Tablet 10 mg PO DIRECTED Rx Instructions: see taper instructions take 4 tabs po x 2 days,then 3 tabs for 2 days,2 tabs for 3 days,1 tab for 3 dasys...ordered 01/22/25 Discharge Orders: Discharge Order (Routine); Ordered 01/23/25 Ordered By: Claudia Pearson Admission Data Admit Date/Time: 01/22/25 22:05 Attending Provider: Oliver Rolon Admit Provider: Claudia Pearson Primary Care Provider: Belkys Joel Other Providers: Oliver Rolon Other Interventions: Discharge Summary Assessment (RN) Last Done: 01/23/25 17:07 Supervising Physician Co-Signing Physician Notes Patient was seen and examined independently I discussed the case with Tahmina Cisneros PGY2 I reviewed pertinent past medical social family history and also the plan of care and agree with the plan of care. Patient developed chest pain and shortness of breath after intercourse. Patient's shortness of breath continued with some minor dizziness. In the emergency department there was some initial concerns as he was sent by ambulance from his primary care office for STEMI. EKG was not pathognomonic for STEMI. Patient was seen transiently by Dr. Trotter who feels this was not acute coronary syndrome and patient was not taken to [facility]. His initial troponin was in the normal range. Patient symptoms persisted with pleuritic chest pain and shortness of breath. A CT angiogram was undertaken which was unremarkable for pulmonary embolism or other pathology within the chest. Patient has multiple allergies and suffers from a "mast cell disorder" for which she sees Dr. Armendariz for which he is treated with Xolair famotidine [place] last Rema and Kitofen Patient had no issues with stress testing today. The patient had improved with nitroglycerin and will continue discussed this with his primary care physician he will be discharged home we will follow-up with the formal read on his stress test and follow-up with his outpatient provider. Any exceptions will be noted below Resident Activity Tracking Resident Involvement: Resident Care Provided Care Provided: [facility] Medicine
--- NOTE | 2025-01-23 19:14 | Billing Data ---
Date of Service January 23, 2025 Coding Level of Care Code 17372 INP/OBS DISCH >30 MIN
[2025-01-23] MEDS ORDERED: ASPIRIN 81 MG ECTAB PO SCH (21:00)
--- NOTE | 2025-01-24 19:36 | Electrocardiogram Report ---
Test Reason : Blood Pressure : */* mmHG Vent. Rate : 71 BPM Atrial Rate : 71 BPM P-R Int : 156 ms QRS Dur : 90 ms QT Int : 400 ms P-R-T Axes : 47 26 7 degrees QTcB Int : 434 ms Normal sinus rhythm Nonspecific T wave abnormality Abnormal ECG When compared with ECG of 29-Sep-2023 11:37, ST elevation now present in Anterior leads Confirmed by Reji Medeiros ([id number]) on 01/24/2025 7:35:59 PM Referred By: REFERRED SELF Confirmed By: Reji Medeiros
--- NOTE | 2025-01-24 20:54 | Electrocardiogram Report ---
Test Reason : Blood Pressure : */* mmHG Vent. Rate : 69 BPM Atrial Rate : 69 BPM P-R Int : 156 ms QRS Dur : 84 ms QT Int : 394 ms P-R-T Axes : 47 27 17 degrees QTcB Int : 422 ms Normal sinus rhythm Normal ECG When compared with ECG of 22-Jan-2025 15:18, (unconfirmed) No significant change was found Confirmed by Reji Medeiros ([id number]) on 01/24/2025 8:53:51 PM Referred By: REFERRED SELF Confirmed By: Reji Medeiros
== END 2025-01-23 17:07 | disposition home or self-care (01) | DRG 313 ==
LOC: SUATTDRO → ED 15:08 → EDINP 22:05